=== PATIENT | female | born 1985 | race African-American/Black ===

== ENCOUNTER 2018-04-05 22:35 | Emergency (ER) | payer MEDICAID ==
[~2018-04-05] VITALS: Ht 160 cm; Wt 92.0 kg
[2018-04-06] MEDS ORDERED: KETOROLAC 30MG/ML VIAL IV STA (02:54)
[2018-04-06] MEDS ORDERED: SODIUM CHLORIDE 0.9% 1,000 ML IV ONE (02:54)
[2018-04-06] MEDS ORDERED: ONDANSETRON HCL 4MG/2ML INJ IV STA (02:54)
[2018-04-06 03:20] LABS: CHLORIDE 104 mEq/L (98-107)
[2018-04-06 04:14] LABS: HEMATOCRIT. 36.9 % (36.0-48.0); HEMOGLOBIN. 12.2 g/dL (12.0-16.0); MEAN CORPUSCULAR VOLUME 84.9 fL (81.0-99.0); MEAN PLATELET VOLUME 8.3 fl (7.4-10.4); PLATELET 321 x1000/uL (130-400); RED BLOOD CELL COUNT 4.35 mill/uL (4.2-5.4); RED CELL DISTRIBUTION WIDTH 14.2 % (11.6-14.6)
[2018-04-06 04:15] LABS: BASOPHILS % 0.4 % (0.0-2.0); EOSINOPHILS % 0.2 % (0.0-5.0); MONOCYTES % 9.5 % (2.0-8.0); NEUTROPHILS % 72.9 % (40.0-76.0)
[2018-04-06 04:40] LABS: CLARITY URINE TURBID (CLEAR); COLOR URINE YELLOW (YELLOW); KETONES URINE NEGATIVE (NEGATIVE); LEUKOCYTE ESTERASE URINE TRACE (NEGATIVE); NITRITE URINE NEGATIVE (NEGATIVE); OCCULT BLOOD URINE 1+ (NEGATIVE); PH URINE 7.5 (4.5-8.0); PROTEIN URINE NEGATIVE (NEGATIVE); SPECIFIC GRAVITY URINE 1.023 (1.005-1.030)
[2018-04-06 05:51] VITALS: BP 112/63
== END 2018-04-06 05:52 | disposition home or self-care (01) ==
LOC: ER 22:35
DX: N39.0 Urinary tract infection, site not specified (principal); R51 Headache; R42 Dizziness and giddiness
CPT/HCPCS: 36415; 80053; 81003; 81025; 85025; 87804; 96361; 96374; 96375; 99283; J1885; J2405; J7030; Z7610